=== PATIENT | male | born 1970 | race Caucasian/White ===

== ENCOUNTER 2022-04-22 21:17 | Outpatient (CLI) | payer OTHER, SELFPAY | END 2022-04-22 21:18 | disposition home or self-care (01) | LOC: AMB 04-24 11:18 | PROVIDERS: PCP Family Medicine; Visit Provider Family Medicine | DX: R56.9 Unspecified convulsions (principal) | CPT/HCPCS: A0425; A0427 ==

== ENCOUNTER 2022-04-24 16:12 | Outpatient (CLI) | payer OTHER, SELFPAY | END 2022-04-24 16:13 | disposition home or self-care (01) | PROVIDERS: PCP Family Medicine; Visit Provider Family Medicine | DX: R55 Syncope and collapse (principal); R10.9 Unspecified abdominal pain; R73.9 Hyperglycemia, unspecified | CPT/HCPCS: 80048; 87086 ==

== ENCOUNTER 2022-05-06 15:20 | Outpatient (CLI) | payer OTHER, SELFPAY ==
--- NOTE | 2022-05-06 15:30 | CRLHL7_ITS ---
For Patients: As a result of the Cures Act, medical imaging exams and procedure reports are released immediately into your electronic medical record. You may view this report before your referring provider. If you have questions, please contact your health care provider. INDICATION: Syncopal episode. History of melanoma. TECHNIQUE: Sagittal and axial T1, axial FLAIR, T2, diffusion-weighted gadolinium-enhanced sagittal axial and coronal T1 weighted images. FINDINGS: Lateral, 3rd and 4th ventricles are normal in size and configuration. There are no enhancing intra-axial or extra-axial lesions. There is no brain edema or mass effect. There is no evidence of intracranial metastatic neoplasm. No evidence of recent ischemic infarction. No areas of diffusion restriction. No evidence of intracranial hemorrhage. Brainstem and cerebellum appear normal. The usual expected flow voids within major cerebral arteries and dural venous sinuses imply gross patency of these major vascular structures. Inflammatory mucosal thickening noted within maxillary ethmoid and frontal sinuses. Orbits, sella turcica and skullbase are otherwise unremarkable. IMPRESSION: 1. No evidence of intracranial metastatic neoplasm. No acute infarction or intracranial hemorrhage. 2. Inflammatory paranasal sinus changes. Otherwise negative. Dictated by Miguel Martinez MD @ 05/07/2022 8:59:34 AM (Electronically Signed)
== END 2022-05-06 15:21 | disposition home or self-care (01) ==
LOC: MRI 15:22
PROVIDERS: PCP Family Medicine; Visit Provider Family Medicine
DX: R55 Syncope and collapse (principal)
CPT/HCPCS: 70553; A9575

== ENCOUNTER 2022-05-14 12:52 | Outpatient (CLI) | payer OTHER, SELFPAY | END 2022-05-14 12:53 | disposition home or self-care (01) | LOC: RAD 12:53 | PROVIDERS: PCP Family Medicine; Visit Provider Family Medicine | DX: R55 Syncope and collapse (principal) | CPT/HCPCS: 93306 ==

== ENCOUNTER 2022-11-10 08:16 | Outpatient (CLI) | payer OTHER, SELFPAY | END 2022-11-10 08:17 | disposition home or self-care (01) | PROVIDERS: PCP Family Medicine; Visit Provider Family Medicine | DX: Z00.00 Encounter for general adult medical examination without abnormal findings (principal); R73.9 Hyperglycemia, unspecified; R03.0 Elevated blood-pressure reading, without diagnosis of hypertension; K21.9 Gastro-esophageal reflux disease without esophagitis | CPT/HCPCS: 80053; 80061; 84443 ==

== ENCOUNTER 2022-11-25 10:36 | Outpatient (CLI) | payer OTHER, SELFPAY ==
--- NOTE | 2022-11-25 11:08 | W.ANESCHARGE ---
Anesthesia Charges Start Date/Time Anesthesia Start Date: 11/25/22 Anesthesia Start Time: 11:04 Stop Date/Time Anesthesia Stop Date: 11/25/22 Anesthesia Stop Time: 11:34
--- NOTE | 2022-11-25 11:39 | W.ANESCHARGE ---
Anesthesia Charges Start Date/Time Anesthesia Start Date: 11/25/22 Anesthesia Start Time: 11:04 Stop Date/Time Anesthesia Stop Date: 11/25/22 Anesthesia Stop Time: 11:34
== END 2022-11-25 10:37 | disposition home or self-care (01) ==
LOC: OP CLINIC 10:36
PROVIDERS: PCP Family Medicine; Visit Provider Internal Medicine
DX: Z12.11 Encounter for screening for malignant neoplasm of colon (principal); K64.8 Other hemorrhoids; K21.9 Gastro-esophageal reflux disease without esophagitis
CPT/HCPCS: 00813; 43239; 45378; 88305; J2704

== ENCOUNTER 2023-08-31 08:24 | Outpatient (CLI) | payer OTHER, SELFPAY | END 2023-08-31 08:25 | disposition home or self-care (01) | LOC: NFLDREF 09-02 00:17 | PROVIDERS: PCP Family Medicine; Referring Provider Family Medicine; Visit Provider Family Medicine | DX: Z00.00 Encounter for general adult medical examination without abnormal findings (principal); I10 Essential (primary) hypertension; R73.9 Hyperglycemia, unspecified; R21 Rash and other nonspecific skin eruption; Z12.5 Encounter for screening for malignant neoplasm of prostate | CPT/HCPCS: 80048; 80061; G0103 ==